=== PATIENT | female | born 1960 | race Caucasian/White ===

== ENCOUNTER 2016-12-22 20:05 | Inpatient (IN) ==
[2016-12-22] MEDS ORDERED: methylPREDNISolone 125 MG/2 ML VIAL IVP ONE (20:33)
[2016-12-22] MEDS ORDERED: Ipratropium/Albuterol Neb 3 ML IH ONE (20:33)
[2016-12-22] MEDS ORDERED: *HR* HYDROmorphone (PF) 1 MG/ML SYRINGE IVP ONE ×2 (20:33→22:23)
[2016-12-22] MEDS ORDERED: Ondansetron 4 MG/2 ML VIAL IVP ONE (20:33)
--- NOTE | 2016-12-22 20:36 | Emergency Department Note ---
Disposition Clinical Impression: Acute exacerbation of chronic obstructive airways disease Disposition: Admitted As Inpatient Condition: Fair Referrals: NO,PCP [Primary Care Provider] - Forms: ED Satisfaction Letter Time of Disposition: 22:05 SOB HPI - General Chief Complaint: ED Shortness of Breath/Dyspnea Stated Complaint: Rib pain Time Seen by Provider: 12/22/16 20:16 Source: patient Mode of arrival: ambulatory Limitations: no limitations Nursing Notes Reviewed: Yes Vital Signs Reviewed: Yes - History of Present Illness 56-year-old who comes in complaining of shortness of breath and cough. Thinks she may have pneumonia. Pain in the left chest with coughing states she's had previous rib fractures also didn't note maybe she refractured her ribs. She's wheezing throughout she's short of breath she presents now for evaluation. 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 Context: recent illness Severity: moderate Consistency/Duration: constant Improves with: nothing Worsens with: coughing Known history of: COPD Associated symptoms: Reports: wheezing Treatment prior to arrival: none Cough present: Yes Cough Description: Involuntary Cough Frequency: Intermittent - Related Data Previous Rx's Medication Instructions Recorded Albuterol Sulfate [Albuterol 2 puff IH Q4HR PRN #1 hfa.aer.[id number] 12/12/16 Inhaler] Azithromycin [Azithromycin 6-Tab 250 mg PO PER PKG DI #6 tab 12/12/16 Pack] predniSONE [PredniSONE] 40 mg PO DAILY 4 Days 12/12/16 Allergies Allergy/AdvReac Type Severity Reaction Status Date / Time No Known Allergies Allergy Verified 12/12/16 19:33 Constitutional: Denies: fever, chills, weakness, weight change Eyes: Denies: eye pain, eye discharge, vision change ENT ED: Denies: ear pain, throat pain, dental pain, hearing loss, epistaxis, congestion, dysphagia Cardiovascular: Reports: chest pain (With coughing). Denies: palpitations, dyspnea on exertion, edema, syncope Respiratory: Reports: cough, dyspnea, wheezes. Denies: hemoptysis, stridor Gastrointestinal: Denies: abdominal pain, nausea, vomiting, diarrhea, constipation, hematemesis, melena, hematochezia Genitourinary: Denies: dysuria, frequency, hematuria, discharge Musculoskeletal: Denies: back pain, neck pain, arthralgia, myalgia Integumentary: Denies: rash, abrasion, lesions Neurological: Denies: headache, weakness, numbness, paresthesias, confusion, abnormal gait, vertigo Psychiatric: Denies: anxiety, depression, suicidal thoughts, homicidal thoughts , auditory hallucinations, visual hallucinations Endocrine: Denies: fatigue Hematological/Lymphatic: Denies: easy bleeding, easy bruising Allergic/Immunologic: Denies: facial swelling, urticaria Past Medical History - Past Medical History Medical history: Reports: COPD, other Psychiatric history: Reports: no psych history - Social History Smoking Status: Current every day smoker Smokeless Tobacco Status: No Alcohol use: Reports: none Drug use: Reports: none Physical Exam - General General appearance: alert, in no apparent distress - Head Head exam: atraumatic, normocephalic, normal inspection - Eye Eye exam: Present: normal appearance, PERRL, EOMI - ENT ENT exam: normal exam, normal oropharynx, mucous membranes moist - Neck Neck exam: Present: normal inspection, full ROM, trachea midline - Chest Chest inspection: Present: normal inspection, symmetric chest wall rise - Respiratory Respiratory exam: Present: respiratory distress (Mild to moderate), wheezes, accessory muscle use - Cardiovascular Cardiovascular exam: Present: regular rate, normal rhythm, normal heart sounds - Abdominal Exam Abdominal exam: Present: soft, Non-Tender. Absent: tenderness, distention, guarding, rebound, rigidity - Extremities Exam Extremities exam: Present: normal inspection, full ROM. Absent: tenderness, pedal edema - Expanded Lower Extremity Exam Neurovascular/Tendon exam: Absent: motor deficit, sensory deficit, tendon deficit Gait: observed and normal - Back Exam Back exam: Present: normal inspection, full ROM. Absent: tenderness - Neurological Exam Neurological exam: Present: alert, oriented X3 - Psychiatric Psychiatric exam: Present: normal affect, normal mood - Skin Skin exam: Present: warm, dry, intact, normal color Course - Reevaluation(s) Reevaluation #1: 56-year-old with a history of COPD who comes in complaining of shortness of breath which has progressed over the last several days or hurts in her left chest when she coughs. On arrival patient was significantly short of breath she' s been given treatments and continues to have wheezing patient will be admitted for an exacerbation of COPD. Time: 22:04 - Consultations Consultation #1: Discussed with Dr. Jayjay admit Time: 22:04 Vital Signs Temperature 98.5 F 12/22/16 20:09 Pulse Rate 86 12/22/16 20:09 Respiratory Rate 18 12/22/16 20:09 Blood Pressure 113/76 12/22/16 20:09 O2 Sat by Pulse Oximetry 95 12/22/16 20:09 Temperature 98.5 F 12/22/16 20:09 Pulse Rate 76 12/22/16 21:24 Respiratory Rate 18 12/22/16 21:24 Blood Pressure 126/67 12/22/16 21:24 O2 Sat by Pulse Oximetry 93 12/22/16 21:24 Oxygen Delivery Oxygen Delivery Room Air Shortness of Breath/Dyspnea - Lab Data Result diagrams: 12/22/16 20:50 12/22/16 20:50 Lab Results 12/22/16 12/22/16 12/22/16 Range/Units 20:50 20:50 20:50 WBC 10.1 (4.3-11.1) K/mcL RBC 4.44 (3.82-4.97) M/mcL Hgb 11.7 (11.5-15.4) g/dL Hct 36.2 (35.3-44.9) % MCV 81.5 L (83.0-100.0) fL MCH 26.4 L (28.0-33.3) pg MCHC 32.3 (31.6-35.5) g/dL RDW 13.6 (11.5-14.5) % Plt Count 207 (140-400) K/mcL MPV 9.6 (9.4-12.4) fL Immature Gran % 0.4 (0-4) % Seg Neutrophils % 73.1 % Lymphocytes % 16.1 % Monocytes % 9.6 % Eosinophils % 0.4 % Basophils % 0.4 % Neutrophils # 7.4 (1.6-8.9) K/mcL Lymphocytes # 1.6 (0.6-4.6) K/mcL Monocytes # 1.0 (0.0-1.3) K/mcL Eosinophils # 0.0 (0.0-0.6) K/mcL Basophils # 0.0 (0.0-0.2) K/mcL Immature Plt Fraction 1.9 (1.1-6.1) % Sodium 138 (136-145) mEq/L Potassium 3.6 (3.5-4.5) mEq/L Chloride 105 (98-109) mEq/L Carbon Dioxide 24 (19-29) mEq/L BUN 10 (7-20) mg/dL Creatinine 0.61 (0.57-1.11) mg/dL Est GFR ( Amer) > 60 (> 60) Est GFR (Non-Af Amer) > 60 (> 60) BUN/Creatinine Ratio 16 (6-26) Glucose 101 H (70-99) mg/dL Calculated Osmolality 285 (280-300) Lactic Acid 0.7 (0.5-2.2) mmol/L Calcium 8.7 (8.6-10.8) mg/dL Troponin I (0-0.03) ng/mL B-Natriuretic Peptide (0-100) pg/mL 12/22/16 12/22/16 Range/Units 20:50 20:50 WBC (4.3-11.1) K/mcL RBC (3.82-4.97) M/mcL Hgb (11.5-15.4) g/dL Hct (35.3-44.9) % MCV (83.0-100.0) fL MCH (28.0-33.3) pg MCHC (31.6-35.5) g/dL RDW (11.5-14.5) % Plt Count (140-400) K/mcL MPV (9.4-12.4) fL Immature Gran % (0-4) % Seg Neutrophils % % Lymphocytes % % Monocytes % % Eosinophils % % Basophils % % Neutrophils # (1.6-8.9) K/mcL Lymphocytes # (0.6-4.6) K/mcL Monocytes # (0.0-1.3) K/mcL Eosinophils # (0.0-0.6) K/mcL Basophils # (0.0-0.2) K/mcL Immature Plt Fraction (1.1-6.1) % Sodium (136-145) mEq/L Potassium (3.5-4.5) mEq/L Chloride (98-109) mEq/L Carbon Dioxide (19-29) mEq/L BUN (7-20) mg/dL Creatinine (0.57-1.11) mg/dL Est GFR ( Amer) (> 60) Est GFR (Non-Af Amer) (> 60) BUN/Creatinine Ratio (6-26) Glucose (70-99) mg/dL Calculated Osmolality (280-300) Lactic Acid (0.5-2.2) mmol/L Calcium (8.6-10.8) mg/dL Troponin I 0.01 (0-0.03) ng/mL B-Natriuretic Peptide 59 (0-100) pg/mL - Radiology Data Radiology results reviewed: Yes I reviewed the patient's radiology results. Chest X-Ray 12/22/16 20:33 IMPRESSION: 1. No acute cardiopulmonary process identified. D/ / Arnel Cochran MD / Arnel Cochran MD Interpreting Provider: Arnel Cochran MD - EKG Data EKG attestation: Yes I reviewed and interpreted this EKG. EKG shows normal: Reports: sinus rhythm Rate: Reports: normal Rhythm: Reports: NSR When compared to previous EKG there are: no significant changes
[2016-12-22 20:58] LABS: Basophils % 0.4 %; Eosinophils % 0.4 %; Hematocrit 36.2 % (35.3-44.9); Hemoglobin 11.7 g/dL (11.5-15.4); Immature Granulocytes % 0.4 % (0-4); Immature Platelets 1.9 % (1.1-6.1); Lymphocytes # 1.6 K/mcL (0.6-4.6); Lymphocytes % 16.1 %; Mean Corpuscular HGB Conc 32.3 g/dL (31.6-35.5); Mean Corpuscular Hemoglobin 26.4 pg (28.0-33.3); Mean Corpuscular Volume 81.5 fL (83.0-100.0); Mean Platelet Volume 9.6 fL (9.4-12.4); Monocytes % 9.6 %; Neutrophils # 7.4 K/mcL (1.6-8.9); Platelet Count 207 K/mcL (140-400); Red Blood Count 4.44 M/mcL (3.82-4.97); Red Cell Distribution Width 13.6 % (11.5-14.5); Segmented Neutrophils % 73.1 %
[2016-12-22 21:27] LABS: BUN/Creatinine Ratio 16 (6-26); Blood Urea Nitrogen 10 mg/dL (7-20); Calcium 8.7 mg/dL (8.6-10.8); Carbon Dioxide 24 mEq/L (19-29); Chloride 105 mEq/L (98-109); Glucose 101 mg/dL (70-99); Osmolality,Calculated 285 (280-300); Potassium 3.6 mEq/L (3.5-4.5); Sodium 138 mEq/L (136-145); eGFR For African Americans > 60 (> 60); eGFR For Non-African Americans > 60 (> 60)
[2016-12-23] MEDS ORDERED: *HR* HYDROmorphone (PF) 1 MG/ML SYRINGE IVP PRN (02:23)
[2016-12-23] MEDS ORDERED: *HR* OxyCODONE/APAP 5/325 TABLET PO PRN (03:46)
--- NOTE | 2016-12-23 03:54 | Internal Med History&Physical ---
Date of Encounter: 12/23/16 Time of Encounter: 03:50 Assessment and Plan (1) Chest pain Current visit: Yes Status: Acute chest pain is muscloskletal in origin worsens only with cough. will get an x- ray dedicated to look for rib fractures. D-dimer will also be checked RULED OUT pulmonary embolism. If it is elevated PE will be ruled out.serial cardiac markers Qualifiers: Qualified Code(s): R07.9 - Chest pain, unspecified (2) Acute exacerbation of chronic obstructive airways disease Current visit: Yes Status: Acute oral steroids and [id number] nebulizer treatment Internal Medicine - H&P: HPI Chief complaint: left sided chest pain History of present illness: Ms. Polanco is a 56 year old female with history of COPD not on home O2 presents to emergency room today with the main complain of left sided chest pain. He mentioned that for the past few days she has been having pain in the left chest that worsens only with coughing. In a producible with palpation. Patient mentioned that she had rib fractures related to accident long time ago she is having similar symptoms now. Denies any specific traumatic injury but she is having increased cough sputum production the past few days forever COPD exacerbation. Denies any orthopnea paroxysmal nocturnal dyspnea or lower extremity swelling. No fevers chills.o prior history of DVT or pulmonary embolism Past Med Surg Social Fam HX - Past Medical History Medical history: COPD, other Psychiatric history: no psych history - Social History Smoking Status: Current every day smoker Smokeless Tobacco Status: No Alcohol use: none Drug use: none - Family History Mother Hx Family Cancer: Yes (OVARIAN CA) Father Cause of : LEUKEMIA Internal Medicine - H&P: Meds Gabapentin [Neurontin] 600 mg PO DAILY 12/22/16 [History] Oxycodone HCl/Acetaminophen [Percocet 5-325 mg Tablet] 1 each PO DAILY PRN 12/22 [History] Allergies ketorolac [From Toradol] Adverse Reaction (Verified 12/22/16 22:19) Nausea morphine Adverse Reaction (Verified 12/22/16 22:19) Nausea All Systems PM: A 10-system review of systems was performed and is negative for pertinent findings except as documented above in the HPI. Review of systems: 10 point ROS is negative except for HPI. - Constitutional Vitals: Temp Pulse Resp BP Pulse Ox 98.3 F 69 18 96/60 94 12/22/16 23:56 12/22/16 23:56 12/22/16 23:56 12/22/16 23:56 12/22/16 23:56 Exam: Gen.: patient is alert oriented times 3 cardiac: normal S1 S2 no additional sounds or murmurs chest: dimnished air entry. scattered expiratory wheeze abdomen soft nontender nondistended normal bowel sounds lower extremity no swelling. Neuro: no new focal deficits Internal Med - H&P Results - Labs CBC & Chem 7: 12/22/16 20:50 12/22/16 20:50
[2016-12-23] MEDS: Ipratropium/Albuterol Neb 3 ML IH SCH ×4 (04:02→22:05)
[2016-12-23] MEDS: Azithromycin 500 MG in D5% in Water 250 ML IVPB SCH (04:43)
[2016-12-23 05:49] LABS: Basophils % 0.1 %; Hematocrit 36.4 % (35.3-44.9); Hemoglobin 11.5 g/dL (11.5-15.4); Immature Granulocytes % 0.3 % (0-4); Lymphocytes # 0.6 K/mcL (0.6-4.6); Lymphocytes % 9.1 %; Mean Corpuscular HGB Conc 31.6 g/dL (31.6-35.5); Mean Corpuscular Hemoglobin 26.3 pg (28.0-33.3); Mean Corpuscular Volume 83.3 fL (83.0-100.0); Mean Platelet Volume 9.5 fL (9.4-12.4); Monocytes # 0.1 K/mcL (0.0-1.3); Monocytes % 1.1 %; Neutrophils # 6.2 K/mcL (1.6-8.9); Platelet Count 173 K/mcL (140-400); Red Blood Count 4.37 M/mcL (3.82-4.97); Red Cell Distribution Width 13.6 % (11.5-14.5); Segmented Neutrophils % 89.4 %
[2016-12-23 06:07] LABS: BUN/Creatinine Ratio 15 (6-26); Blood Urea Nitrogen 10 mg/dL (7-20); Calcium 8.6 mg/dL (8.6-10.8); Carbon Dioxide 25 mEq/L (19-29); Chloride 99 mEq/L (98-109); Creatine Kinase 77 Units/L (29-168); Glucose 268 mg/dL (70-99); Magnesium 1.7 mg/dL (1.6-2.6); Osmolality,Calculated 280 (280-300); Potassium 4.2 mEq/L (3.5-4.5); Sodium 131 mEq/L (136-145); eGFR For African Americans > 60 (> 60); eGFR For Non-African Americans > 60 (> 60)
[2016-12-23] MEDS ORDERED: Albuterol 2.5 MG/3 ML NEBULIZER IH PRN (07:49)
[2016-12-23] MEDS ORDERED: *HR* Meperidine 25 MG/ML SYRINGE IVP PRN ×3 (08:00→12:53)
[2016-12-23] MEDS: *HR* HYDROcodone/Acet 7.5/325 mg TABLET PO SCH ×2 (08:02→17:25)
[2016-12-23] MEDS: Ibuprofen 600 MG TABLET PO SCH ×2 (08:02→17:25)
[2016-12-23] MEDS: Gabapentin 300 MG CAPSULE PO SCH (08:02)
[2016-12-23] MEDS: methylPREDNISolone 125 MG/2 ML VIAL IVP SCH ×2 (08:03→17:26)
--- NOTE | 2016-12-23 08:11 | Internal Med Progress Note ---
Date of Encounter: 12/23/16 Time of Encounter: 08:08 - Assessment and plan (1) Bacterial pneumonia Current Visit: Yes Status: Acute Assessment and plan: Lateral chest x-ray shows a small effusion raising suspicion for bacterial pneumonia. Also patient is left-sided pleurisy.. I related Rocephin in addition to Zithromax and follow the white count which is normal to this point. (2) Pleural effusion associated with pulmonary infection Current Visit: Yes Status: Acute Assessment and plan: Left lateral rib x-ray showed a small pleural effusion perhaps related to infection beside antibiotics now for the treatment needed at this point (3) Acute exacerbation of chronic obstructive airways disease Current Visit: Yes Status: Acute Assessment and plan: Keep patient on Solu-Medrol 60 every 8 DC prednisone and DuoNeb every 6 and add albuterol nebs every 2 hours when necessary (4) Chest pain Current Visit: Yes Status: Acute Assessment and plan: Pleuritic in nature. Cardiac events EKG negative. Ibuprofen and [place] scheduled doses. Qualifiers: Chest pain type: pleurodynia Qualified Code(s): R07.81 - Pleurodynia (5) Smoking addiction Current Visit: Yes Status: Acute Assessment and plan: Patient is a smoker. Counseling provided. Add nicotine patch. (6) Abnormal weight loss Current Visit: Yes Status: Acute Assessment and plan: Patient indicated that she has lost quite a bit of weight during last 6 months. 6 months ago she was 144 pounds and she went on to almost 90 pounds but now she has gained 111 pounds. She has history of hepatitis B and C. We will repeat her hepatitis B and C and as well as HIV. Since she is a smoker we will also obtain CT chest abdomen and pelvis with and without contrast. (7) DVT prophylaxis Current Visit: Yes Status: Acute (8) Mechanical deep vein thrombosis (DVT) prophylaxis in place Current Visit: Yes Status: Acute Assessment and plan: Patient is on heparin and mechanical devices - Subjective Interval history: Ms. Marimar Polanco is a 56-year-old female admitted for left-sided pleuritic chest pain for last 4 days as well as COPD exacerbation. Left lateral ribs x- ray ruled out any refracture however did show a small pleural effusion which raises a question if she has left-sided community-acquired pneumonia. Currently she is on Zithromax and Rocephin will be admitted. Her Prednisone to be DC'd and Solu-Medrol 60 mg every 8 will be started along with DuoNeb treatment every 6 hours and Mucinex. For pleuritic chest pain 6 doses of ibuprofen and no protocol combination would recommend every 8 hours apart with the when necessary Demerol. Apparently Dilaudid 1 mg and reduced her heart rate into 40s and blood pressure 90s though same was not reported at lower doses. Patient claims that she is allergic to morphine though most of her allergies are related to nausea. - Constitutional Vitals: Temp Pulse Resp BP Pulse Ox 97.3 F L 50 14 92/52 95 12/23/16 06:55 12/23/16 06:55 12/23/16 06:55 12/23/16 06:55 12/23/16 06:55 - Head Head exam: Present: atraumatic, normocephalic - Eye Eye exam: Present: PERRL, conjuntiva pink, sclera anicteric Pupils: Present: PERRL - Neck Neck exam general surgery: Present: supple, trachea midline. Absent: lymphadenopathy - Cardiovascular Cardiovascular exam: Present: RRR, +S1, +S2. Absent: diastolic murmur, gallop, rubs, systolic murmur - GI/Abdominal GI/Abdominal exam: Present: normal bowel sounds, soft, no peritoneal signs. Absent: distended, tenderness - Extremities Exam Extremities exam: Present: warm, radial pulses palpable and symetrical. Absent : calf tenderness, cyanotic, pedal edema - Neurological Exam Neurological exam: Present: CN II-XII intact, oriented X3, no focal deficits. Absent: pronater drift, facial droop, speech deficit - Skin Skin exam: Present: dry, intact Internal Medicine: Result - Labs CBC & Chem 7: 12/23/16 04:13 12/23/16 04:13 Labs: Short CBC 12/23/16 Range/Units 04:13 WBC 7.0 (4.3-11.1) K/mcL Hgb 11.5 (11.5-15.4) g/dL Hct 36.4 (35.3-44.9) % Plt Count 173 (140-400) K/mcL Neutrophils # 6.2 (1.6-8.9) K/mcL BMP 12/23/16 04:13 Sodium 131 L D Potassium 4.2 Chloride 99 Carbon Dioxide 25 BUN 10 Creatinine 0.66 Glucose 268 H Calcium 8.6 Cardiac Enzymes 12/23/16 Range/Units 04:13 Troponin I 0.01 (0-0.03) ng/mL - ABG Interpretation ABG results: PT/INR, D-dimer D-Dimer 450 ng/mLFEU (0-500) 12/23/16 04:13 - Impressions Impressions Ribs X-Ray 12/23/16 03:43 IMPRESSION: 1. No pneumothorax or definite acute rib fracture. 2. Trace left pleural effusion. D/ / Bogdan Galeas MD / Bogdan Galeas MD Interpreting Provider: Bogdan Galeas MD Consult Discharge Plan - Plan Referrals: NO,PCP [Primary Care Provider] -
[2016-12-23] MEDS ORDERED: predniSONE 20 MG TABLET PO SCH (09:00)
[2016-12-23] MEDS: 0.9 % Sodium Chloride 1,000 ML IVC SCH (10:07)
[2016-12-23] MEDS ORDERED: Dextrose Gel 15 GM PO PRN ×2 (12:54)
[2016-12-23] MEDS ORDERED: D5% in Water 1,000 ML IVC PRN (12:54)
[2016-12-23] MEDS ORDERED: *HR* Dextrose 50 % in Water (Syg) 50 ML SYRINGE IVP PRN (12:54)
[2016-12-23] MEDS: *HR* Meperidine 25 MG/ML SYRINGE IVP PRN ×2 (14:09→22:51)
--- NOTE | 2016-12-23 14:51 | Electrocardiograph Report ---
[place] [id number] Test Date: 2016-12-22 Pat Name: Marimar Polanco Department: 105 Room: 3A37 Gender: F Technology Intern: JB0 : 1960 Requested By: Zi Flores Order Number: [id number] Reading MD: Javier Conway MD Measurements Intervals [place] Rate: 73 P: 74 WV: 134 QRS: 72 QRSD: 80 T: 65 QT: 330 QTc: 356 Interpretive Statements SINUS RHYTHM MINIMAL VOLTAGE CRITERIA FOR LVH Electronically Signed On 12-23-2016 14:50:05 EDT by Javier Conway MD
[2016-12-23] MEDS: Insulin LISPRO 300 UNITS/3 ML VIAL SQ SCH ×2 (17:32→22:58)
[2016-12-24] MEDS: 0.9 % Sodium Chloride 1,000 ML IVC SCH ×2 (01:02→11:11)
[2016-12-24] MEDS: *HR* HYDROcodone/Acet 7.5/325 mg TABLET PO SCH ×3 (01:04→16:34)
[2016-12-24] MEDS: Ibuprofen 600 MG TABLET PO SCH ×3 (01:05→16:35)
[2016-12-24] MEDS: methylPREDNISolone 125 MG/2 ML VIAL IVP SCH ×3 (01:06→16:33)
[2016-12-24] MEDS: Azithromycin 500 MG in D5% in Water 250 ML IVPB SCH (04:20)
[2016-12-24] MEDS: Ipratropium/Albuterol Neb 3 ML IH SCH ×4 (04:23→22:16)
[2016-12-24 04:38] LABS: Basophils % 0.1 %; Hematocrit 36.5 % (35.3-44.9); Hemoglobin 11.4 g/dL (11.5-15.4); Immature Granulocytes % 0.4 % (0-4); Lymphocytes # 0.5 K/mcL (0.6-4.6); Lymphocytes % 3.6 %; Mean Corpuscular HGB Conc 31.2 g/dL (31.6-35.5); Mean Corpuscular Hemoglobin 25.9 pg (28.0-33.3); Mean Platelet Volume 10.1 fL (9.4-12.4); Monocytes # 0.4 K/mcL (0.0-1.3); Monocytes % 2.4 %; Platelet Count 200 K/mcL (140-400); Red Cell Distribution Width 13.7 % (11.5-14.5); Segmented Neutrophils % 93.5 %
[2016-12-24 04:39] LABS: Neutrophils # 13.8 K/mcL (1.6-8.9)
[2016-12-24 04:55] LABS: Alanine Aminotransferase 30 Units/L (0-55); Albumin 2.9 g/dL (3.5-5.0); Albumin/Globulin Ratio 0.8 (1.1-2.2); Alkaline Phosphatase 123 Units/L (38-126); Aspartate Amino Transferase 18 Units/L (5-34); BUN/Creatinine Ratio 21 (6-26); Bilirubin,Total 0.4 mg/dL (0.2-1.2); Blood Urea Nitrogen 14 mg/dL (7-20); Calcium 8.7 mg/dL (8.6-10.8); Carbon Dioxide 28 mEq/L (19-29); Chloride 106 mEq/L (98-109); Globulin 3.5 g/dL (2.4-3.5); Glucose 239 mg/dL (70-99); Osmolality,Calculated 300 (280-300); Potassium 3.8 mEq/L (3.5-4.5); Total Protein 6.4 g/dL (6.0-8.3); eGFR For African Americans > 60 (> 60); eGFR For Non-African Americans > 60 (> 60)
[2016-12-24 04:56] LABS: Sodium 141 mEq/L (136-145)
[2016-12-24] MEDS: *HR* Enoxaparin 40 MG/0.4 ML SYRINGE SQ SCH ×2 (05:45→10:03)
[2016-12-24] MEDS ORDERED: *HR* Promethazine 25 MG/ML VIAL IVP ONE (06:22)
[2016-12-24] MEDS: Insulin LISPRO 300 UNITS/3 ML VIAL SQ SCH ×4 (08:03→20:46)
[2016-12-24] MEDS: Gabapentin 300 MG CAPSULE PO SCH (08:16)
[2016-12-24 11:12] LABS: Hepatitis B Surface Antibody 84.44 mIU/mL
[2016-12-24] MEDS: *HR* Meperidine 25 MG/ML SYRINGE IVP PRN ×3 (11:19→20:47)
--- NOTE | 2016-12-24 18:08 | Internal Med Progress Note ---
Date of Encounter: 12/24/16 Time of Encounter: 18:03 - Assessment and plan (1) Bacterial pneumonia Current Visit: Yes Status: Acute (2) Pleural effusion associated with pulmonary infection Current Visit: Yes Status: Acute (3) Acute exacerbation of chronic obstructive airways disease Current Visit: Yes Status: Acute (4) Chest pain Current Visit: Yes Status: Acute Assessment and plan: Pleuritic in nature. Cardiac events EKG negative. Ibuprofen and [place] scheduled doses. Qualifiers: Chest pain type: pleurodynia Qualified Code(s): R07.81 - Pleurodynia (5) Smoking addiction Current Visit: Yes Status: Acute (6) Abnormal weight loss Current Visit: Yes Status: Acute (7) DVT prophylaxis Current Visit: Yes Status: Acute (8) Mechanical deep vein thrombosis (DVT) prophylaxis in place Current Visit: Yes Status: Acute - Subjective Interval history: Ms. Marimar Polanco is a 56-year-old female admitted for left-sided pleuritic chest pain for last 4 days as well as COPD exacerbation. Left lateral ribs x- ray ruled out any refracture however did show a small pleural effusion which raises a question if she has left-sided community-acquired pneumonia. Currently she is on Zithromax and Rocephin will be admitted. Her Prednisone to be DC'd and Solu-Medrol 60 mg every 8 will be started along with DuoNeb treatment every 6 hours and Mucinex. For pleuritic chest pain 6 doses of ibuprofen and no protocol combination would recommend every 8 hours apart with the when necessary Demerol. Apparently Dilaudid 1 mg and reduced her heart rate into 40s and blood pressure 90s though same was not reported at lower doses. Patient claims that she is allergic to morphine though most of her allergies are related to nausea. 12/[address] chest which confirmed that she does have pneumonia. However CT chest also showed severe COPD and some apical lesion raising question if it is atypical tuberculosis. I inquired with her she did not have any previous history of tuberculosis neither did she have any exposure or recent travel and I suspect these findings. Well with current infection and emphysema but in any case I will ask pulmonology to see her. Her CT chest and abdomen did not show any signs of malignancy.. Her chest pain has resolved with ibuprofen and [place]. Patient was denying Lovenox but we explained her the benefits and relatively reduced risk so she is agreeable to take Lovenox now. CT abdomen showed possibility of portal hypertension and anything we can send her to see gastroenterology as an outpatient and by the time she will be better with her current issues. Her TSH is 0.164 considering the fact that she has lost quite a bit of weight. Continue her current treatment with antibiotics and steroids and nebulizers. - Constitutional Vitals: Temp Pulse Resp BP Pulse Ox 98.3 F 62 18 101/60 95 12/24/16 16:22 12/24/16 16:22 12/24/16 16:22 12/24/16 16:22 12/24/16 16:22 - Head Head exam: Present: atraumatic, normocephalic - Eye Eye exam: Present: PERRL, conjuntiva pink, sclera anicteric Pupils: Present: PERRL - Neck Neck exam general surgery: Present: supple, trachea midline. Absent: lymphadenopathy - Respiratory Respiratory exam: Present: decreased breath sounds, prolonged expiratory phase, wheezes. Absent: accessory muscle use, rales, rhonchi - Cardiovascular Cardiovascular exam: Present: RRR, +S1, +S2. Absent: diastolic murmur, gallop, rubs, systolic murmur - GI/Abdominal GI/Abdominal exam: Present: normal bowel sounds, soft, no peritoneal signs. Absent: distended, tenderness - Extremities Exam Extremities exam: Present: warm, radial pulses palpable and symetrical. Absent : calf tenderness, cyanotic, pedal edema - Neurological Exam Neurological exam: Present: CN II-XII intact, oriented X3, no focal deficits. Absent: pronater drift, facial droop, speech deficit - Skin Skin exam: Present: dry, intact Internal Medicine: Result - Labs CBC & Chem 7: 12/24/16 04:16 12/24/16 04:16 Labs: Short CBC 12/24/16 Range/Units 04:16 WBC 14.8 H D (4.3-11.1) K/mcL Hgb 11.4 L (11.5-15.4) g/dL Hct 36.5 (35.3-44.9) % Plt Count 200 (140-400) K/mcL Neutrophils # 13.8 H (1.6-8.9) K/mcL BMP 12/24/16 04:16 Sodium 141 D Potassium 3.8 Chloride 106 Carbon Dioxide 28 BUN 14 Creatinine 0.67 Glucose 239 H Calcium 8.7 Liver Function 12/24/16 Range/Units 04:16 Total Bilirubin 0.4 (0.2-1.2) mg/dL AST 18 (5-34) Units/L ALT 30 (0-55) Units/L Alkaline Phosphatase 123 (38-126) Units/L Albumin 2.9 L (3.5-5.0) g/dL - ABG Interpretation ABG results: PT/INR, D-dimer D-Dimer 450 ng/mLFEU (0-500) 12/23/16 04:13 - Impressions Impressions Abdomen/Pelvis CT 12/23/16 20:00 IMPRESSION: Findings the liver worrisome for chronic disease as above. Findings suspicious for portal venous hypertension are also present including splenomegaly and suspected perisplenic venous collaterals. There is low attenuation within the periphery of the medial segment right liver which could represent fibrosis. A dedicated liver protocol MRI is recommended to further evaluate. Comparison with prior studies would be helpful if available. Scratch D/ / Nancie Larose Cha, MD / Nancie Larose Cha, MD Interpreting Provider: Nancie Larose Cha, MD Chest CT 12/23/16 20:00 IMPRESSION: At least moderate emphysema. Scattered multifocal bilateral airspace disease, mostly within the right upper and right lower lobes and lingula. There is associated bronchial wall thickening as well as evidence small airways disease. Findings are suspicious for infectious airways disease. Given its distribution, atypical mycobacterial infection could be considered. D/ / Nancie Larose Cha, MD / Nancie Larose Cha, MD Interpreting Provider: Nancie Larose Cha, MD - VTE Documentation of Mechanical Device: Intermittent pneumatic compression device Consult Discharge Plan - Plan Referrals: NO,PCP [Primary Care Provider] -
[2016-12-24] MEDS ORDERED: Ondansetron 4 MG/2 ML VIAL IVP ONE (20:06)
[2016-12-25] MEDS: Ibuprofen 600 MG TABLET PO SCH (00:04)
[2016-12-25] MEDS: *HR* HYDROcodone/Acet 7.5/325 mg TABLET PO SCH ×2 (00:04→15:47)
[2016-12-25] MEDS: methylPREDNISolone 125 MG/2 ML VIAL IVP SCH ×3 (00:05→19:45)
[2016-12-25] MEDS: 0.9 % Sodium Chloride 1,000 ML IVC SCH ×2 (00:26→15:45)
[2016-12-25] MEDS: Ipratropium/Albuterol Neb 3 ML IH SCH ×4 (04:21→22:41)
[2016-12-25] MEDS: Azithromycin 500 MG in D5% in Water 250 ML IVPB SCH (05:00)
[2016-12-25] MEDS: *HR* Enoxaparin 40 MG/0.4 ML SYRINGE SQ SCH (05:01)
[2016-12-25 05:02] LABS: Basophils % 0.1 %; Hematocrit 34.6 % (35.3-44.9); Hemoglobin 10.7 g/dL (11.5-15.4); Immature Granulocytes % 0.5 % (0-4); Lymphocytes # 0.4 K/mcL (0.6-4.6); Lymphocytes % 3.1 %; Mean Corpuscular HGB Conc 30.9 g/dL (31.6-35.5); Mean Corpuscular Hemoglobin 26.4 pg (28.0-33.3); Mean Corpuscular Volume 85.2 fL (83.0-100.0); Mean Platelet Volume 10.2 fL (9.4-12.4); Monocytes # 0.3 K/mcL (0.0-1.3); Neutrophils # 12.4 K/mcL (1.6-8.9); Platelet Count 210 K/mcL (140-400); Red Blood Count 4.06 M/mcL (3.82-4.97); Red Cell Distribution Width 14.1 % (11.5-14.5); Segmented Neutrophils % 94.3 %
[2016-12-25 05:36] LABS: Alanine Aminotransferase 31 Units/L (0-55); Albumin 2.7 g/dL (3.5-5.0); Albumin/Globulin Ratio 0.8 (1.1-2.2); Alkaline Phosphatase 110 Units/L (38-126); Aspartate Amino Transferase 27 Units/L (5-34); BUN/Creatinine Ratio 25 (6-26); Bilirubin,Total 0.3 mg/dL (0.2-1.2); Blood Urea Nitrogen 16 mg/dL (7-20); Calcium 8.5 mg/dL (8.6-10.8); Carbon Dioxide 24 mEq/L (19-29); Chloride 111 mEq/L (98-109); Globulin 3.2 g/dL (2.4-3.5); Glucose 151 mg/dL (70-99); Osmolality,Calculated 300 (280-300); Potassium 4.4 mEq/L (3.5-4.5); Sodium 143 mEq/L (136-145); Total Protein 5.9 g/dL (6.0-8.3); eGFR For African Americans > 60 (> 60); eGFR For Non-African Americans > 60 (> 60)
--- NOTE | 2016-12-25 08:01 | Internal Med Progress Note ---
Date of Encounter: 12/25/16 Time of Encounter: 07:58 - Assessment and plan (1) Bacterial pneumonia Current Visit: Yes Status: Acute Assessment and plan: Lateral chest x-ray shows a small effusion raising suspicion for bacterial pneumonia. CT chest confirms that. On Rocephin in addition to Zithromax white count has improved significantly (2) Pleural effusion associated with pulmonary infection Current Visit: Yes Status: Acute Assessment and plan: Left lateral rib x-ray showed a small pleural effusion perhaps related to infection . CT chest also indicates that she has pneumonia. She is on antibiotics (3) Acute exacerbation of chronic obstructive airways disease Current Visit: Yes Status: Acute Assessment and plan: Overall breathing has improved therefore start tapering down the steroids. Solu -Medrol 60 mg 3 times a day to 60 mg twice daily. albuterol nebs every 2 hours when necessary (4) Chest pain Current Visit: Yes Status: Acute Assessment and plan: Pleuritic in nature. Cardiac events EKG negative. Ibuprofen and [place] resolved it Qualifiers: Chest pain type: pleurodynia Qualified Code(s): R07.81 - Pleurodynia (5) Smoking addiction Current Visit: Yes Status: Acute (6) Abnormal weight loss Current Visit: Yes Status: Chronic (7) DVT prophylaxis Current Visit: Yes Status: Acute (8) Mechanical deep vein thrombosis (DVT) prophylaxis in place Current Visit: Yes Status: Acute - Subjective Interval history: Ms. Marimar Polanco is a 56-year-old female admitted for left-sided pleuritic chest pain for last 4 days as well as COPD exacerbation. Left lateral ribs x- ray ruled out any refracture however did show a small pleural effusion which raises a question if she has left-sided community-acquired pneumonia. Currently she is on Zithromax and Rocephin will be admitted. Her Prednisone to be DC'd and Solu-Medrol 60 mg every 8 will be started along with DuoNeb treatment every 6 hours and Mucinex. For pleuritic chest pain 6 doses of ibuprofen and no protocol combination would recommend every 8 hours apart with the when necessary Demerol. Apparently Dilaudid 1 mg and reduced her heart rate into 40s and blood pressure 90s though same was not reported at lower doses. Patient claims that she is allergic to morphine though most of her allergies are related to nausea. 12/[address] chest which confirmed that she does have pneumonia. However CT chest also showed severe COPD and some apical lesion raising question if it is atypical tuberculosis. I inquired with her she did not have any previous history of tuberculosis neither did she have any exposure or recent travel and I suspect these findings. Well with current infection and emphysema but in any case I will ask pulmonology to see her. Her CT chest and abdomen did not show any signs of malignancy.. Her chest pain has resolved with ibuprofen and [place]. Patient was denying Lovenox but we explained her the benefits and relatively reduced risk so she is agreeable to take Lovenox now. CT abdomen showed possibility of portal hypertension and anything we can send her to see gastroenterology as an outpatient and by the time she will be better with her current issues. Her TSH is 0.164 considering the fact that she has lost quite a bit of weight. Continue her current treatment with antibiotics and steroids and nebulizers. 12/25 Discussed the case with Dr. Sheehan , he plans to do bronchoscopy and reviewed the CT chest. HIV and hepatitis C nonreactive hepatitis B S antibodies present. 3 TSH T4 and T3 ordered as previous TSH was 0.164 overall improving with oxygen saturation 96% at room air. Start tapering the steroids. Anticipate discharge tomorrow if agreeable with pulmonology. Patient was complaining of left-sided pleuritic chest pain. They gave her ibuprofen and [place] before and that, addition to Carafate and it has not stopped now we will continue it. - Constitutional Vitals: Temp Pulse Resp BP Pulse Ox 97.6 F 46 15 120/69 96 12/25/16 03:35 12/25/16 03:35 12/25/16 04:21 12/25/16 03:35 12/25/16 04:21 - Head Head exam: Present: atraumatic, normocephalic - Eye Eye exam: Present: PERRL, conjuntiva pink, sclera anicteric Pupils: Present: PERRL - Neck Neck exam general surgery: Present: supple, trachea midline. Absent: lymphadenopathy - Respiratory Respiratory exam: Present: decreased breath sounds, wheezes. Absent: accessory muscle use, rales, rhonchi - Cardiovascular Cardiovascular exam: Present: RRR, +S1, +S2. Absent: diastolic murmur, gallop, rubs, systolic murmur - GI/Abdominal GI/Abdominal exam: Present: normal bowel sounds, soft, no peritoneal signs. Absent: distended, tenderness - Extremities Exam Extremities exam: Present: warm, radial pulses palpable and symetrical. Absent : calf tenderness, cyanotic, pedal edema - Neurological Exam Neurological exam: Present: CN II-XII intact, oriented X3, no focal deficits. Absent: pronater drift, facial droop, speech deficit - Skin Skin exam: Present: dry, intact Internal Medicine: Result - Labs CBC & Chem 7: 12/25/16 04:28 12/25/16 04:28 Labs: Short CBC 12/25/16 Range/Units 04:28 WBC 13.1 H (4.3-11.1) K/mcL Hgb 10.7 L (11.5-15.4) g/dL Hct 34.6 L (35.3-44.9) % Plt Count 210 (140-400) K/mcL Neutrophils # 12.4 H (1.6-8.9) K/mcL BMP 12/25/16 04:28 Sodium 143 Potassium 4.4 Chloride 111 H Carbon Dioxide 24 BUN 16 Creatinine 0.64 Glucose 151 H Calcium 8.5 L Liver Function 12/25/16 Range/Units 04:28 Total Bilirubin 0.3 (0.2-1.2) mg/dL AST 27 (5-34) Units/L ALT 31 (0-55) Units/L Alkaline Phosphatase 110 (38-126) Units/L Albumin 2.7 L (3.5-5.0) g/dL - ABG Interpretation ABG results: PT/INR, D-dimer D-Dimer 450 ng/mLFEU (0-500) 12/23/16 04:13 - VTE Documentation of Mechanical Device: Intermittent pneumatic compression device Consult Discharge Plan - Plan Referrals: NO,PCP [Primary Care Provider] -
--- NOTE | 2016-12-25 08:17 | Pre-Sedation Evaluation ---
Pre-sedation evaluation - Pre-sedation checklist Date of procedure: 12/25/16 Procedure: Bronchoscopy Recent Vitals: Last Vital Signs Temp 98.4 F 12/25/16 08:11 Pulse 67 12/25/16 08:11 Resp 15 12/25/16 08:11 BP 120/71 12/25/16 08:11 Pulse Ox 95 12/25/16 08:11 H&P (including ROS) documented in medical record: Yes Previous reaction to sedatives/anesthetics: No Dietary Status: NPO after Midnight Airway Assessment: Patient can open mouth completely, TMJ function normal Dentition: dentures removed (upper) Possible difficult airway: No ASA Classification *see protocol: CLASS II-Mild systemic disease Plan of Care: Pt appropriate candidate for procedure/moderate/conscious sedation , Risks/benefits of procedure/sedation discussed w/ patient/family
--- NOTE | 2016-12-25 08:20 | Pulmonology Consult Note ---
Date of Encounter: 12/25/16 Time of Encounter: 07:35 Assessment and Plan (1) Abnormal CT scan, chest Current Visit: Yes Status: Acute Reviewed CT chest results with the patient and there is evidence of emphysema which is secondary to her history of smoking and she was advised to quit smoking. Also there is evidence of abnormalities suggestive infectious. Patient has low risk of TB, however there infection such as atypical mycobacterium in the differential diagnosis and recommended bronchoscopy. Discussed with patient all the risks, alternatives, benefits of the procedure with the patient in the presence of the nurse and she agrees to have it done. (2) Emphysema lung Current Visit: Yes Status: Chronic Possible COPD exacerbation and consider transition IV steroids to oral prednisone and will add Symbicort that treatment. Qualifiers: Emphysema type: centrilobular Qualified Code(s): J43.2 - Centrilobular emphysema (3) Pneumonia, organism unspecified Current Visit: Yes Status: Acute Continue empiric antibiotics and plan for bronchoscopy (4) Abnormal weight loss Current Visit: Yes Status: Chronic Patient with emphysema and smoking tobacco quit have weight loss, however they are also at risk of malignancies and CT chest does not suggest malignancies or other infectious findings. (5) Tobacco abuse Current Visit: Yes Status: Chronic (6) Tobacco abuse counseling Current Visit: Yes Status: Chronic Patient was advised to quit smoking History of Present Illness Consult date: 12/25/16 Requesting physician: Maria R Pendleton Reason for consult: pneumonia, abnormal CXR/CT Chief complaint: Left-sided chest pain History of present illness: This is a pleasant 56-year-old female with history of COPD and continued to smoke tobacco was admitted to the hospital for chief complaint of left-sided chest pain. Patient has significant weight loss over the past few months and she also complains of productive cough, no hemoptysis, wheezing and dyspnea. Patient has been treated for COPD exacerbation. Patient denies any contact with patients with TB, she denies any history being in presence and denies any history of HIV and in the past hospitalization they have done a PPD which has been negative according to the patient. Patient has been having night sweats ever since she had hysterectomy. She denies any fever or chills and denies orthopnea. Past Med Surg Social Fam HX - Past Medical History Medical history: COPD, other Psychiatric history: no psych history - Social History Smoking Status: Current every day smoker Smokeless Tobacco Status: No Alcohol use: none Drug use: none - Family History Mother Hx Family Cancer: Yes (OVARIAN CA) Father Cause of : LEUKEMIA Medications and Allergies Gabapentin [Neurontin] 600 mg PO DAILY 12/22/16 [History] Oxycodone HCl/Acetaminophen [Percocet 5-325 mg Tablet] 1 each PO DAILY PRN 12/22 [History] Allergies ketorolac [From Toradol] Adverse Reaction (Verified 12/22/16 22:19) Nausea morphine Adverse Reaction (Verified 12/22/16 22:19) Nausea All Systems: A 10-system review of systems was performed and is negative for pertinent findings except as documented above in the HPI. Physical Examination Vital Signs: Vital Signs, Last 4 Hours Temp Pulse Resp BP Pulse Ox 12/25/16 08:11 98.4 F 67 15 120/71 95 12/25/16 04:21 15 96 General appearance: no acute distress Eyes: nonicteric ENT: oropharynx moist Mallampati (class): 1 Neck: supple Effort: normal Inspection: hyperextended Auscultation: bilateral: diminished breath sounds Percussion: bilateral: not dull Cardiovascular: regular rate and rhythm Gastrointestinal: normoactive bowel sounds, non-distended Extremities: no cyanosis, no edema normal mental status, non-focal exam mood appropriate Results - Laboratory Findings CBC and BMP: 12/25/16 04:28 12/25/16 04:28 PT/INR, D-dimer D-Dimer 450 ng/mLFEU (0-500) 12/23/16 04:13 Abnormal lab findings: Abnormal lab results WBC 13.1 K/mcL (4.3-11.1) H 12/25/16 04:28 Hgb 10.7 g/dL (11.5-15.4) L 12/25/16 04:28 Hct 34.6 % (35.3-44.9) L 12/25/16 04:28 MCH 26.4 pg (28.0-33.3) L 12/25/16 04:28 MCHC 30.9 g/dL (31.6-35.5) L 12/25/16 04:28 Neutrophils # 12.4 K/mcL (1.6-8.9) H 12/25/16 04:28 Lymphocytes # 0.4 K/mcL (0.6-4.6) L 12/25/16 04:28 Chloride 111 mEq/L (98-109) H 12/25/16 04:28 Glucose 151 mg/dL (70-99) H 12/25/16 04:28 POC Glucose 131 (58-89) H 12/25/16 08:05 Calcium 8.5 mg/dL (8.6-10.8) L 12/25/16 04:28 Serum Total Protein 5.9 g/dL (6.0-8.3) L 12/25/16 04:28 Albumin 2.7 g/dL (3.5-5.0) L 12/25/16 04:28 Albumin/Globulin Ratio 0.8 (1.1-2.2) L 12/25/16 04:28 TSH 0.164 mcIU/mL (0.350-4.840) L 12/24/16 04:16 - Diagnostic Findings CT scan - chest: report reviewed, image reviewed - Clinical Findings Intake & Output: Intake & Output 12/24/16 12/25/16 12/25/16 23:59 07:59 15:59 Intake Total 1240 / 1240 370 / 370 Output Total 400 / 400 200 / 200 450 / 450 Balance 840 / 840 170 / 170 -450 / -450 Weight 50.802 kg Consult Discharge Plan - Plan Referrals: NO,PCP [Primary Care Provider] -
[2016-12-25] MEDS ORDERED: Tetracaine/Benzocaine/Butamben 200MG/SPRAY (100SPY/BOT) MM ONE (08:29)
[2016-12-25] MEDS ORDERED: *HR* EPINEPHrine 1 MG/10 ML SYRINGE INTRATRACH PRN (08:29)
[2016-12-25] MEDS ORDERED: Lidocaine Viscous Oral Soln 15 ML SOLUTION MM ONE (08:29)
[2016-12-25] MEDS ORDERED: *HR* FentaNYL (PF) 100 MCG/2 ML VIAL IVP PRN (08:29)
[2016-12-25] MEDS ORDERED: *HR* Midazolam HCl 5 MG/5 ML VIAL IVP PRN (08:29)
[2016-12-25] MEDS ORDERED: Albuterol 2.5 MG/3 ML NEBULIZER IH ONE (08:29)
[2016-12-25] MEDS ORDERED: 0.9 % Sodium Chloride 1,000 ML IVC SCH (08:30)
[2016-12-25] MEDS ORDERED: *HR* Midazolam HCl 5 MG/5 ML VIAL IVP ONE (08:44)
[2016-12-25] MEDS ORDERED: *HR* FentaNYL (PF) 100 MCG/2 ML VIAL ONE (08:44)
[2016-12-25] MEDS: Insulin LISPRO 300 UNITS/3 ML VIAL SQ SCH ×4 (08:44→20:37)
[2016-12-25] MEDS ORDERED: Albuterol 2.5 MG/3 ML NEBULIZER ONE (09:09)
[2016-12-25] MEDS: Gabapentin 300 MG CAPSULE PO SCH (10:14)
[2016-12-25 11:19] LABS: Appearance of Body Fluid Slightly Hazy (Clear); Volume of Body Fluid 13 mL
[2016-12-25 11:23] LABS: Appearance of Body Fluid Slightly Hazy (Clear); Volume of Body Fluid 10 mL
[2016-12-25] MEDS: Budesonide/Formoterol 160/4.5 MDI IH SCH ×2 (11:30→22:41)
[2016-12-25] MEDS: *HR* Meperidine 25 MG/ML SYRINGE IVP PRN (12:30)
[2016-12-25 14:10] LABS: Thyroid Stimulating Hormone 0.142 mcIU/mL (0.350-4.840)
[2016-12-25] MEDS: Ibuprofen 400 MG TABLET PO SCH (15:47)
[2016-12-25] MEDS ORDERED: *HR* OxyCODONE/APAP 5/325 TABLET PO ONE (20:18)
[2016-12-25] MEDS ORDERED: Ondansetron 4 MG/2 ML VIAL IVP ONE (20:22)
[2016-12-25] MEDS: Gabapentin 400 MG CAPSULE PO SCH (20:42)
[2016-12-26] MEDS: *HR* HYDROcodone/Acet 7.5/325 mg TABLET PO SCH ×2 (00:14→08:28)
[2016-12-26] MEDS: Ibuprofen 400 MG TABLET PO SCH ×2 (00:14→08:30)
[2016-12-26] MEDS: Azithromycin 500 MG in D5% in Water 250 ML IVPB SCH (03:58)
[2016-12-26] MEDS: 0.9 % Sodium Chloride 1,000 ML IVC SCH (04:03)
[2016-12-26] MEDS: Ipratropium/Albuterol Neb 3 ML IH SCH (04:08)
[2016-12-26 05:18] LABS: Hematocrit 36.3 % (35.3-44.9); Hemoglobin 11.2 g/dL (11.5-15.4); Immature Granulocytes % 0.6 % (0-4); Lymphocytes # 0.6 K/mcL (0.6-4.6); Mean Corpuscular HGB Conc 30.9 g/dL (31.6-35.5); Mean Corpuscular Hemoglobin 25.9 pg (28.0-33.3); Mean Corpuscular Volume 83.8 fL (83.0-100.0); Mean Platelet Volume 9.6 fL (9.4-12.4); Monocytes # 0.5 K/mcL (0.0-1.3); Monocytes % 5.1 %; Neutrophils # 8.8 K/mcL (1.6-8.9); Platelet Count 218 K/mcL (140-400); Red Blood Count 4.33 M/mcL (3.82-4.97); Red Cell Distribution Width 14.2 % (11.5-14.5); Segmented Neutrophils % 88.3 %
[2016-12-26 05:40] LABS: Alanine Aminotransferase 33 Units/L (0-55); Albumin 2.9 g/dL (3.5-5.0); Albumin/Globulin Ratio 0.9 (1.1-2.2); Alkaline Phosphatase 107 Units/L (38-126); Aspartate Amino Transferase 23 Units/L (5-34); BUN/Creatinine Ratio 29 (6-26); Bilirubin,Total 0.4 mg/dL (0.2-1.2); Blood Urea Nitrogen 20 mg/dL (7-20); Calcium 8.4 mg/dL (8.6-10.8); Carbon Dioxide 24 mEq/L (19-29); Chloride 108 mEq/L (98-109); Globulin 3.4 g/dL (2.4-3.5); Glucose 109 mg/dL (70-99); Osmolality,Calculated 293 (280-300); Potassium 3.8 mEq/L (3.5-4.5); Sodium 140 mEq/L (136-145); Total Protein 6.3 g/dL (6.0-8.3); eGFR For African Americans > 60 (> 60); eGFR For Non-African Americans > 60 (> 60)
[2016-12-26 05:52] LABS: Triiodothyronine (T3) Free 1.73 pg/mL (1.71-3.71)
[2016-12-26] MEDS: methylPREDNISolone 125 MG/2 ML VIAL IVP SCH (06:23)
[2016-12-26] MEDS: *HR* Enoxaparin 40 MG/0.4 ML SYRINGE SQ SCH (06:25)
[2016-12-26 07:59] VITALS: BP 103/63
[2016-12-26] MEDS: Gabapentin 400 MG CAPSULE PO SCH (08:29)
[2016-12-26] MEDS: Gabapentin 300 MG CAPSULE PO SCH (08:30)
[2016-12-26] MEDS: Insulin LISPRO 300 UNITS/3 ML VIAL SQ SCH (08:31)
--- NOTE | 2016-12-26 09:39 | Discharge Summary ---
Date of Encounter: 12/26/16 Time of Encounter: 09:32 - Discharge Diagnosis (1) Bacterial pneumonia Priority: Primary Status: Acute (2) Pleural effusion associated with pulmonary infection Priority: Secondary Status: Acute (3) Acute exacerbation of chronic obstructive airways disease Priority: Primary Status: Acute (4) Chest pain Priority: Secondary Status: Acute Qualifiers: Chest pain type: pleurodynia Qualified Code(s): R07.81 - Pleurodynia (5) Smoking addiction Priority: Secondary Status: Acute (6) Abnormal weight loss Priority: Secondary Status: Chronic (7) DVT prophylaxis Priority: Secondary Status: Acute (8) Mechanical deep vein thrombosis (DVT) prophylaxis in place Priority: Secondary Status: Acute - Discharge Medications Prescriptions: Ipratropium/Albuterol Neb [Duoneb] 3 ml IH [id number] #120 inhsol HYDROcodone/Acet 7.5/325 mg [[place] 7.5-325 mg] 1 tab PO Q8HR PRN #12 tablet PRN Reason: Pain Ibuprofen [Motrin] 400 mg PO Q8HR #12 tablet Amoxicillin/Clavulanate [Augmentin] 875 mg PO BIDWM #20 tablet Budesonide/Formoterol 160/4.5 [Symbicort 160/4.5] 2 puff IH BIDR #1 inhaler GuaiFENesin ER [Mucinex] 600 mg PO BID #20 tbbp.12hr predniSONE [PredniSONE] 10 mg PO BIDWM #62 tablet Home Medications: Gabapentin [Neurontin] 600 mg PO DAILY 12/22/16 [History] Oxycodone HCl/Acetaminophen [Percocet 5-325 mg Tablet] 1 each PO DAILY PRN 12/22 [History] Amoxicillin/Clavulanate [Augmentin] 875 mg PO BIDWM #20 tablet 12/26/16 [Rx] Budesonide/Formoterol 160/4.5 [Symbicort 160/4.5] 2 puff IH BIDR #1 inhaler [Rx] Calcium Carbonate [Tums] 1,000 mg PO TID PRN #0 tab.chew 12/26/16 [Rx] GuaiFENesin ER [Mucinex] 600 mg PO BID #20 tbbp.12hr 12/26/16 [Rx] HYDROcodone/Acet 7.5/325 mg [[place] 7.5-325 mg] 1 tab PO Q8HR PRN #12 tablet [Rx] Ibuprofen [Motrin] 400 mg PO Q8HR #12 tablet 12/26/16 [Rx] Ipratropium/Albuterol Neb [Duoneb] 3 ml IH [id number] #120 inhsol 12/26/16 [Rx] predniSONE [PredniSONE] 10 mg PO BIDWM #62 tablet 12/26/16 [Rx] Allergies/Adverse Reactions: Allergies ketorolac [From Toradol] Adverse Reaction (Verified 12/22/16 22:19) Nausea morphine Adverse Reaction (Verified 12/22/16 22:19) Nausea Date of admission: 12/23/16 17:51 Primary care physician: PCP NO Consults: 12/25/16 07:50 Consult to Pulmonology [CONS] Routine Consulting Provider: [facility] [place] Reason for Consult: COPD/Abnormal CT chest/ Weight loss Time Notified: 07:51 Call Completed: Yes Discharging clinician: Maria R Pendleton Anticipated date of discharge: 12/26/16 - Patient Status Disposition: Home, Self-Care Overall status at discharge: patient is progressing back to baseline - Discharge Instructions Follow Up With: NO,PCP [Primary Care Provider] - - Diet and Activity Activity: increase activity as tolerated Diet: advance to your usual diet Interval History: Ms. Marimar Polanco is a 56-year-old female admitted for left-sided pleuritic chest pain for last 4 days as well as COPD exacerbation. Left lateral ribs x- ray ruled out any refracture however did show a small pleural effusion which raises a question if she has left-sided community-acquired pneumonia. She was treated with Zithromax and Rocephin, DuoNeb, steroids and Mucinex. For pleuritic chest pain 6 doses of ibuprofen and [place] every 8 hours Patient claims that she is allergic to morphine though most of her allergies are related to nausea. Patient was complaining of weight loss and therefore a CT chest and abdomen were done. CT chest confirmed that she does have pneumonia. However CT chest also showed severe COPD and some apical lesion raising question if it is atypical tuberculosis. I inquired with her she did not have any previous history of tuberculosis neither did she have any exposure or recent travel and I suspect these findings. A pulmonology consult was requested and Dr. Sheehan saw the patient Her CT chest and abdomen did not show any signs of malignancy.. CT abdomen showed possibility of portal hypertension and anything we can send her to see gastroenterology as an outpatient and by the time she will be better with her current issues. Her TSH is 0.164 considering the fact that she has lost quite a bit of weight. However free T3 and T4 were within normal range. Patient head bronchoscopy and an BAL showed gram-negative cocci however no malignancy acid-fast Bacillus test was negative. HIV and hepatitis C nonreactive hepatitis B S antibodies present. She continued to be improving with oxygen saturation 96% at room air. At this time she will continue her treatment with oral medication at home. She will follow with the pulmonology in office. She is recommended to see gastroenterology as outpatient. Hospital course: Ms. Polanco is a 56 year old female - Time Spent with Patient Total time spent providing and/or coordinating discharge services: Greater than 30 minutes - Constitutional Vitals: Temp Pulse Resp BP Pulse Ox 98.3 F 66 14 103/63 94 12/26/16 07:53 12/26/16 07:53 12/26/16 07:53 12/26/16 07:53 12/26/16 07:53 - Head Head exam: Present: atraumatic, normocephalic - Eye Eye exam: Present: PERRL, conjuntiva pink, sclera anicteric Pupils: Present: PERRL - Neck Neck exam general surgery: Present: supple, trachea midline. Absent: lymphadenopathy - Respiratory Respiratory exam: Present: wheezes. Absent: accessory muscle use, rales, rhonchi Additional comments: scattered wheezing but breath shounds much improved. On 2.5 liters oxygen which is her baseline. ambulating. - Cardiovascular Cardiovascular exam: Present: RRR, +S1, +S2. Absent: diastolic murmur, gallop, rubs, systolic murmur - GI/Abdominal GI/Abdominal exam: Present: normal bowel sounds, soft, no peritoneal signs. Absent: distended, tenderness - Extremities Exam Extremities exam: Present: warm, radial pulses palpable and symetrical. Absent : calf tenderness, cyanotic, pedal edema - Neurological Exam Neurological exam: Present: CN II-XII intact, oriented X3, no focal deficits. Absent: pronater drift, facial droop, speech deficit - Skin Skin exam: Present: dry, intact - VTE Documentation of Mechanical Device: Intermittent pneumatic compression device
[2016-12-26 16:14] LABS: CK-BB (CK isoenzymes) 0 % (0-0); CK-MB (CK isoenzymes) 0 % (0-4); CK-MM (CK-isoenzymes) 100 % (96-100)
[2016-12-26 16:14] LABS: CK-MB (CK isoenzymes) 0 % (0-4); CK-MM (CK-isoenzymes) 100 % (96-100)
[2016-12-27 09:15] LABS: CK Total (Ck Isoenzymes) 77 U/L (20-180)
[2016-12-27 09:15] LABS: CK Total (Ck Isoenzymes) 61 U/L (20-180); CK-BB (CK isoenzymes) 0 % (0-0)
== END 2016-12-26 10:27 | disposition home or self-care (01) | DRG 166 ==
LOC: EMEROO 20:05 → 3ANU 20:05
PROVIDERS: ADMIT Internal Medicine; ATTEND Internal Medicine